=== PATIENT | male | born 1970 | race Hispanic/Latino ===

== ENCOUNTER 2019-03-04 12:53 | Emergency (ER) | payer OTHER ==
--- NOTE | 2019-03-04 13:25 | ER ---
Nurse's Notes [facility] Name: Brandon Carcamo Age: 48 yrs Sex: Male : 1970 Arrival Date: 03/04/2019 Time: 12:54 Bed 28 Private MD: Diagnosis: Other chest pain Presentation: 03/04 12:55 Presenting complaint: Patient states: "I could feel my blood pressure getting higher so aj1 I checked it and it was 196/115.". Transition of care: patient was not received from another setting of care. Onset of symptoms was March 04, 2019. Risk Assessment: Do you want to hurt yourself or someone else? Patient reports no desire to harm self or others. Initial Sepsis Screen: Does the patient meet any 2 criteria? No. Patient's initial sepsis screen is negative. Does the patient have a suspected source of infection? No. Patient's initial sepsis screen is negative. Care prior to arrival: None. 12:55 Method Of Arrival: Wheelchair aj1 12:55 Acuity: AJN 3 aj1 Triage Assessment: 12:57 General: Appears in no apparent distress. comfortable, Behavior is calm, cooperative, aj1 appropriate for age. Pain: Denies pain. Neuro: Level of Consciousness is awake, alert, obeys commands, Oriented to person, place, time, situation. Cardiovascular: Patient's skin is warm and dry. Respiratory: Airway is patent Respiratory effort is even, unlabored, Respiratory pattern is regular, symmetrical. Historical: - Allergies: 12:57 No Known Allergies; aj1 - Home Meds: 12:57 None [Active]; aj1 - PMHx: 12:57 None; aj1 - Immunization history:: Flu vaccine is not up to date. - Social history:: Smoking status: Patient uses tobacco products, denies chronic smoking, but will smoke occasionally, Patient/guardian denies using alcohol, street drugs, The patient lives with family. - Ebola Screening: : Patient denies travel to an Ebola-affected area in the 21 days before illness onset. - Family history:: not pertinent. Screenin:12 Abuse screen: Denies threats or abuse. Denies injuries from another. Nutritional ca1 screening: No deficits noted. Tuberculosis screening: No symptoms or risk factors identified. Fall Risk None identified. Assessment: 13:12 General: Appears in no apparent distress. comfortable, Behavior is cooperative, ca1 appropriate for age, anxious. Pain: Denies pain. Neuro: Level of Consciousness is awake, alert, obeys commands, Oriented to person, place, time, situation. Cardiovascular: Heart tones S1 S2 present Capillary refill < 3 seconds Patient's skin is warm and dry. Respiratory: Airway is patent Trachea midline Respiratory effort is even, unlabored, Respiratory pattern is regular, symmetrical, Breath sounds are clear bilaterally. GI: Abdomen is round non-distended, Bowel sounds present X 4 quads. Abd is soft and non tender X 4 quads. : No deficits noted. No signs and/or symptoms were reported regarding the genitourinary system. EENT: No deficits noted. No signs and/or symptoms were reported regarding the EENT system. Derm: Skin is intact, is healthy with good turgor, Skin is pink, warm \\T\\ dry. Musculoskeletal: Circulation, motion, and sensation intact. Capillary refill < 3 seconds, Range of motion: intact in all extremities. Vital Signs: 12:57 BP 164 / 84; Pulse 82; Resp 18; Temp 98.1; Pulse Ox 100% on R/A; Weight 88.45 kg (R); aj1 Height 5 ft. 6 in. (167.64 cm) (R); Pain 0/10; 12:57 Body Mass Index 31.47 (88.45 kg, 167.64 cm) aj1 ED Course: 12:54 Patient arrived in ED. mr 12:56 Triage completed. aj1 12:57 Arm band placed on Patient placed in waiting room, Patient notified of wait time. aj1 13:05 Shannon Cassidy MD is Attending Physician. ma2 13:07 Salina Huitron, STEPHANIE is Primary Nurse. ca1 13:12 Patient has correct armband on for positive identification. Placed in gown. Bed in low ca1 position. Call light in reach. Side rails up X 1. Pulse ox on. NIBP on. Warm blanket given. 13:12 No provider procedures requiring assistance completed. ca1 13:29 Patient did not have IV access during this emergency room visit. ca1 Administered Medications: No medications were administered Outcome: 13:29 AMA AMA form signed ca1 13:29 Condition: stable 13:29 Discharge instructions given to patient, Instructed on Need for medical check up and ER care. PT refused and signed AMA after talking to provider. Pt states he couldn't afford medical bills Demonstrated understanding of instructions. 13:31 Patient left the ED. ca1 Signatures: Mary Callejas, STEPHANIE RN duarte1 Ivett Milligan mr Shannon Cassidy MD MD ma2 Salina Huitron RN RN ca1
--- NOTE | 2019-03-04 13:25 | EDPHYS ---
Physician Documentation [facility] Name: Brandon Carcamo Age: 48 yrs Sex: Male : 1970 Arrival Date: 03/04/2019 Time: 12:54 Bed 28 Private MD: ED Physician Shannon Cassidy HPI: 03/04 13:21 This 48 yrs old Male presents to ER via Wheelchair with complaints of High ma2 Blood Pressure. 13:21 The patient has elevated blood pressure and discovered this at [address] Onset: The symptoms/episode began/occurred suddenly, 1 hour(s) ago. Severity of symptoms: At its worst the blood pressure was moderate, in the emergency department the blood pressure is unchanged. has chest tightness . Historical: - Allergies: 12:57 No Known Allergies; aj1 - Home Meds: 12:57 None [Active]; aj1 - PMHx: 12:57 None; aj1 - Immunization history:: Flu vaccine is not up to date. - Social history:: Smoking status: Patient uses tobacco products, denies chronic smoking, but will smoke occasionally, Patient/guardian denies using alcohol, street drugs, The patient lives with family. - Ebola Screening: : Patient denies travel to an Ebola-affected area in the 21 days before illness onset. - Family history:: not pertinent. ROS: 13:21 Constitutional: Negative for fever, chills, and weight loss. ma2 13:21 Cardiovascular: Positive for chest pain, Negative for orthopnea, paroxysmal nocturnal dyspnea, acute changes. 13:21 Cardiovascular: Negative for palpitations. 13:21 All other systems are negative. Exam: 13:21 Constitutional: This is a well developed, well nourished patient who is awake, alert, ma2 and in no acute distress. Chest/axilla: Normal chest wall appearance and motion. Nontender with no deformity. No lesions are appreciated. Cardiovascular: Regular rate and rhythm with a normal S1 and S2. No gallops, murmurs, or rubs. Normal PMI, no JVD. No pulse deficits. Respiratory: Lungs have equal breath sounds bilaterally, clear to auscultation and percussion. No rales, rhonchi or wheezes noted. No increased work of breathing, no retractions or nasal flaring. Abdomen/GI: Soft, non-tender, with normal bowel sounds. No distension or tympany. No guarding or rebound. No evidence of tenderness throughout. MS/ Extremity: Pulses equal, no cyanosis. Neurovascular intact. Full, normal range of motion. Neuro: Awake and alert, GCS 15, oriented to person, place, time, and situation. Cranial nerves II-XII grossly intact. Motor strength 5/5 in all extremities. Sensory grossly intact. Cerebellar exam normal. Normal gait. Vital Signs: 12:57 BP 164 / 84; Pulse 82; Resp 18; Temp 98.1; Pulse Ox 100% on R/A; Weight 88.45 kg (R); aj1 Height 5 ft. 6 in. (167.64 cm) (R); Pain 0/10; 12:57 Body Mass Index 31.47 (88.45 kg, 167.64 cm) aj1 MDM: 13:05 Patient medically screened. ma2 13:21 Differential diagnosis: hypertensive crisis, Malignant HTN, CVA, intracerebral ma2 hemorrhage, chest pain. Data reviewed: vital signs, nurses notes. ED course: patient wanted to go against medical advise as he does not want to pay hospital bill, i explained that this is an emergency for him will only order what is emergency as cardiac enzymes and proteins he understand the risk of having mi and . Administered Medications: No medications were administered Disposition: 03/04/19 13:24 Patient has left against medical advice. Impression: Other chest pain. - Patients states they are going to Home. - Condition is Stable. - Discharge Instructions: Nonspecific Chest Pain. Follow up: Private Physician; When: Tomorrow; Reason: Continuance of care. - Problem is new. - Symptoms are unchanged. Signatures: Mary Callejas RN RN aj1 Shannon Cassidy MD MD ma2 Salina Huitron RN RN ca1 Corrections: (The following items were deleted from the chart) 13:31 13:24 03/04/2019 13:24 Patients has left against medical advice. Impression: Other ca1 chest pain. Patient states they are going to Home. Condition is Stable. Follow up: Private Physician; When: Tomorrow; Reason: Continuance of care. Problem is new. Symptoms are unchanged. ma2
== END 2019-03-04 13:31 | disposition left against medical advice (07) ==
LOC: ER 12:53
DX: R03.0 Elevated blood-pressure reading, without diagnosis of hypertension (principal); R07.89 Other chest pain; Z72.0 Tobacco use; Z53.29 Procedure and treatment not carried out because of patient's decision for other reasons
CPT/HCPCS: 99283